=== PATIENT | male | born 1990 | race Caucasian/White ===

== ENCOUNTER 2021-10-19 17:48 | Emergency (ER) | payer OTHER ==
[2021-10-19] MEDS ORDERED: NA CHLORIDE 0.9% 1,000 ML ONE (20:06)
[2021-10-19] MEDS ORDERED: KETOROLAC 30 MG/ML INJ ONE (20:06)
[2021-10-19 20:13] LABS: Urine Blood Trace-intact (Negative); Urine Glucose Negative (Negative); Urine Protein Negative (Negative)
[2021-10-19 20:29] LABS: Absolute Lymphocytes (CBC) 1.6 K/uL (0.7-4.9); Basophils % 0.5 % (0-1.3); Hematocrit 47.3 % (39.6-49.0); Lymphocytes % 18.3 % (15.3-44.8); MPV 7.4 fL (7.6-11.3); RBC Red Blood Cell Count 5.16 M/uL (4.33-5.43)
[2021-10-19 20:45] LABS: Albumin 4.4 g/dL (3.4-5.0); Bilirubin Direct 0.2 mg/dL (0-0.2); Bilirubin Total 0.8 mg/dL (0.2-1.0); Potassium 3.7 mmol/L (3.5-5.1)
--- NOTE | 2021-10-19 21:58 | RAD REPORT ---
EXAM DESCRIPTION: CT - Abdomen Pelvis W Contrast - 10/19/2021 9:25 pm CLINICAL HISTORY: ABD PAIN COMPARISON: <Comparisons> TECHNIQUE: Biphasic, helical CT imaging of the abdomen and pelvis was performed following 100 ml non -ionic IV contrast. No oral contrast administered. All CT scans are performed using dose optimization technique as appropriate and may include automated exposure control or mA/KV adjustment according to patient size. FINDINGS: No suspicious findings in the lung bases. The liver, spleen, and pancreas show no suspicious findings. Gallbladder and biliary tree are also wi thout suspicious finding. Symmetric renal function is seen with no hydronephrosis or suspicious renal mass. No pyelonephritis o r acute parenchymal process. No bladder abnormalities. No adrenal abnormalities. Stomach is distended but not dilated by fluid. No gastric wall thickening or mass. No dilated large o r small bowel. No bowel wall thickening or mass. Appendix is normal. No free air, free fluid or infl ammatory stranding. No hernia, mass or bulky lymphadenopathy. No suspicious bony findings. IMPRESSION: Contrast enhanced CT abdomen and pelvis showing no significant or suspicious finding.
--- NOTE | 2021-10-19 22:05 | EDPHYS ---
Physician Documentation [facility] Name: Vincent Martin Age: 31 yrs Sex: Male : 1990 Arrival Date: 10/19/2021 Time: 17:48 Bed 5 Private MD: ED Physician Leonides Ivey HPI: 10/19 20:06 This 31 yrs old Male presents to ER via Ambulatory with complaints of R Side Pain. pm1 20:06 The patient complains of pain in the lateral right mid back area. The pain does not pm1 radiate. Onset: The symptoms/episode began/occurred 1 week(s) ago. Modifying factors: The symptoms are alleviated by nothing. the symptoms are aggravated by movement. Associated signs and symptoms: Pertinent negatives: diarrhea, dysuria, fever, nausea, vomiting. Severity of pain: in the emergency department the pain is actually worse. The patient has not experienced similar symptoms in the past. The patient has not recently seen a physician. Historical: - Allergies: 18:04 No Known Allergies; vg1 - Home Meds: 18:04 omeprazole Oral [Active]; vg1 - PMHx: 18:04 Acid Reflux; vg1 - PSHx: 18:04 None; vg1 - Immunization history:: Client reports receiving the 2nd dose of the Covid vaccine. - Social history:: Smoking status: Patient reports the use of cigarette tobacco products, cigars. ROS: 20:06 Constitutional: Negative for fever, chills, and weight loss, Cardiovascular: Negative pm1 for chest pain, palpitations, and edema, Respiratory: Negative for shortness of breath, cough, wheezing, and pleuritic chest pain. 20:06 : Negative for injury, bleeding, discharge, and swelling, MS/Extremity: Negative for injury and deformity, Skin: Negative for injury, rash, and discoloration, Neuro: Negative for headache, weakness, numbness, tingling, and seizure. 20:06 Abdomen/GI: Positive for abdominal pain, of the right upper quadrant, Negative for nausea, vomiting, and diarrhea, constipation. 20:06 Back: Positive for flank pain, on the right. 20:06 All other systems are negative. Exam: 20:06 Constitutional: This is a well developed, well nourished patient who is awake, alert, pm1 and in no acute distress. Head/Face: Normocephalic, atraumatic. 20:06 Skin: Warm, dry with normal turgor. Normal color with no rashes, no lesions, and no evidence of cellulitis. MS/ Extremity: Pulses equal, no cyanosis. Neurovascular intact. Full, normal range of motion. 20:06 Cardiovascular: Exam negative for acute changes, Rate: normal, Rhythm: regular, Pulses: no pulse deficits are appreciated. 20:06 Respiratory: Exam negative for acute changes, respiratory distress, shortness of breath, Breath sounds: are clear throughout. 20:06 Abdomen/GI: Exam negative for acute changes, Inspection: abdomen appears normal, Palpation: abdomen is soft and non-tender, in all quadrants. 20:06 Back: Exam negative for acute changes, pain, that is mild, of the lateral aspect of right mid back area. 20:06 Neuro: Exam negative for acute changes, Orientation: is normal, Mentation: is normal, Motor: is normal, moves all fours. Vital Signs: 18:02 BP 134 / 81; Pulse 85; Resp 16; Temp 98.3; Pulse Ox 98% ; Weight 74.84 kg; Height 5 ft. vg1 9 in. (175.26 cm); Pain 4/10; 20:00 BP 137 / 97; Pulse 96; Resp 14; Pulse Ox 100% on R/A; Pain 4/10; tw5 20:18 BP 125 / 80; Pulse 96; Resp 14; Pulse Ox 100% on R/A; Pain 5/10; tw5 21:29 BP 136 / 86; Pulse 18; Pulse Ox 100% on R/A; Pain 5/10; tw5 22:13 BP 129 / 74; Pulse 95; Resp 18; Pulse Ox 100% on R/A; tw5 18:02 Body Mass Index 24.37 (74.84 kg, 175.26 cm) vg1 MDM: 20:03 Patient medically screened. pm1 20:56 Data reviewed: vital signs. Data interpreted: Pulse oximetry: on room air is 100 %. pm1 Interpretation: normal. 22:04 Counseling: I had a detailed discussion with the patient and/or guardian regarding: the pm1 historical points, exam findings, and any diagnostic results supporting the discharge/admit diagnosis, lab results, radiology results, the need for outpatient follow up, to return to the emergency department if symptoms worsen or persist or if there are any questions or concerns that arise at home. 10/19 20:04 Order name: Basic Metabolic Panel; Complete Time: 20:45 pm1 10/19 20:04 Order name: CBC with Diff; Complete Time: 20:35 pm1 10/19 20:04 Order name: Hepatic Function; Complete Time: 20:45 pm1 12 20:04 Order name: Lipase; Complete Time: 20:45 pm1 10/19 20:04 Order name: CT Abd/Pelvis - IV Contrast Only; Complete Time: 22:03 pm1 12 20:13 Order name: Urine Dipstick-Ancillary; Complete Time: 20:35 EDMS 10/19 20:04 Order name: IV Saline Lock; Complete Time: 20:14 pm1 10/19 20:04 Order name: Labs collected and sent; Complete Time: 20:14 pm1 Administered Medications: 20:14 Drug: Ketorolac 30 mg Route: IVP; Site: right antecubital; tw5 21:29 Follow up: Response: No adverse reaction; Pain is unchanged, physician notified tw 21:44 Follow up: Response: No adverse reaction as6 20:14 Drug: NS 0.9% 1000 ml Route: IV; Rate: 1000 ml; Site: right antecubital; tw 21:29 Follow up: Response: No adverse reaction; IV Status: Completed infusion tw 21:44 Follow up: Response: No adverse reaction; IV Status: Completed infusion; IV Intake: as6 1000ml Disposition: 10/20 04:36 Co-signature as Attending Physician, Leonides Ivey MD. [email or web address] Disposition Summary: 10/19/21 22:04 Discharge Ordered Location: Home pm1 Problem: new pm1 Symptoms: have improved pm1 Condition: Stable pm1 Diagnosis - Abdominal pain, unspecified pm1 Followup: pm1 - With: Emergency Department - When: As needed - Reason: Worsening of condition Followup: pm1 - With: Private Physician - When: 2 - 3 days - Reason: Recheck today's complaints, Continuance of care, Re-evaluation by your physician Discharge Instructions: - Discharge Summary Sheet pm1 - Abdominal Pain, Adult pm1 Forms: - Medication Reconciliation Form pm1 - Thank You Letter pm1 - Antibiotic Education pm1 - Prescription Opioid Use pm1 Prescriptions: - Cyclobenzaprine 10 mg Oral Tablet - take 1 tablet by ORAL route every 8 hours As needed; 30 tablet; Refills: 0, pm1 Product Selection Permitted Signatures: Dispatcher [employer] Celio Haas NP CHALK MOLDING MACHINE OPERATOR pm1 Jane Puga RN RN vg1 Leonides Ivey MD MD mh7 Mya Cohn 5 Jony Celestin RN as6 Corrections: (The following items were deleted from the chart) 10/19 18:05 18:04 Social history: Smoking status: Patient denies any tobacco usage or history of. vg1 vg1
--- NOTE | 2021-10-19 22:05 | ER ---
Nurse's Notes [facility] Name: Vincent Martin Age: 31 yrs Sex: Male : 1990 Arrival Date: 10/19/2021 Time: 17:48 Bed 5 Private MD: Diagnosis: Abdominal pain, unspecified Presentation: 10/19 18:02 Chief complaint: Patient states: RUQ pain x1 week, states 'feel like pressure', Denies vg1 NVD, back pain or burning upon urination. Coronavirus screen: Vaccine status: Patient reports receiving the 2nd dose of the covid vaccine. Client denies travel out of the [place] in the last 14 days. Ebola Screen: Patient negative for fever greater than or equal to 101.5 degrees Fahrenheit, and additional compatible Ebola Virus Disease symptoms. Initial Sepsis Screen: Does the patient meet any 2 criteria? No. Patient's initial sepsis screen is negative. Does the patient have a suspected source of infection? No. Patient's initial sepsis screen is negative. Risk Assessment: Do you want to hurt yourself or someone else? Patient reports no desire to harm self or others. Onset of symptoms was October 12, 2021. 18:02 Method Of Arrival: Ambulatory vg1 18:02 Acuity: MINERVA 3 vg1 Triage Assessment: 18:04 General: Appears in no apparent distress. comfortable, Behavior is calm, cooperative. vg1 Pain: Complains of pain in right upper quadrant Pain currently is 4 out of 10 on a pain scale. Quality of pain is described as pressure, Pain began x 1 week. 18:04 GI: Patient currently denies diarrhea, nausea, vomiting. vg1 Historical: - Allergies: 18:04 No Known Allergies; vg1 - Home Meds: 18:04 omeprazole Oral [Active]; vg1 - PMHx: 18:04 Acid Reflux; vg1 - PSHx: 18:04 None; vg1 - Immunization history:: Client reports receiving the 2nd dose of the Covid vaccine. - Social history:: Smoking status: Patient reports the use of cigarette tobacco products, cigars. Screenin:00 Abuse screen: Denies threats or abuse. Denies injuries from another. Nutritional tw5 screening: No deficits noted. Tuberculosis screening: No symptoms or risk factors identified. Fall Risk None identified. Assessment: 20:00 General: Reports " I have been having this pain for about a week, maybe even before, tw5 but I just thought it was cramps." Patient states that the pain has been getting worse. 20:00 Pain: Complains of pain in right upper quadrant Pain currently is 5 out of 10 on a pain tw5 scale. GI: Abdomen is non-distended, Abd is soft X 4 quads. 21:29 Reassessment: Patient appears in no apparent distress at this time. No changes from tw5 previously documented assessment. Patient and/or family updated on plan of care and expected duration. Pain level reassessed. General: Appears in no apparent distress. Behavior is calm, cooperative. 22:13 Reassessment: Patient and/or family updated on plan of care and expected duration. Pain tw5 level reassessed. Vital Signs: 18:02 BP 134 / 81; Pulse 85; Resp 16; Temp 98.3; Pulse Ox 98% ; Weight 74.84 kg; Height 5 ft. vg1 9 in. (175.26 cm); Pain 4/10; 20:00 BP 137 / 97; Pulse 96; Resp 14; Pulse Ox 100% on R/A; Pain 4/10; tw5 20:18 BP 125 / 80; Pulse 96; Resp 14; Pulse Ox 100% on R/A; Pain 5/10; tw5 21:29 BP 136 / 86; Pulse 18; Pulse Ox 100% on R/A; Pain 5/10; tw5 22:13 BP 129 / 74; Pulse 95; Resp 18; Pulse Ox 100% on R/A; tw5 18:02 Body Mass Index 24.37 (74.84 kg, 175.26 cm) vg1 ED Course: 17:48 Patient arrived in ED. ds1 18:03 Triage completed. vg1 18:04 Arm band placed on. vg1 19:48 Celio Garcia NP is PHCP. pm1 19:48 Leonides Ivye MD is Attending Physician. pm1 19:49 Jony Celestin, ARACELIS is Primary Nurse. as6 19:50 Primary Nurse role handed off by Jony Celestin, ARACELIS tw5 19:50 Mya Cohn is Primary Nurse. tw5 20:00 Patient has correct armband on for positive identification. Placed in gown. Bed in low tw5 position. Call light in reach. Side rails up X 1. Pulse ox on. NIBP on. Door closed. Noise minimized. Moved to private room. Warm blanket given. Verbal reassurance given. 20:14 Basic Metabolic Panel Sent. tw5 20:14 CBC with Diff Sent. tw5 20:14 Hepatic Function Sent. tw 20:14 Lipase Sent. tw5 20:18 Initial lab(s) drawn, by me, sent to lab. Inserted saline lock: 20 gauge in right tw5 antecubital area, using aseptic technique. Blood collected. 21:26 CT Abd/Pelvis - IV Contrast Only In Process Unspecified. EDMS 22:13 No provider procedures requiring assistance completed. IV discontinued, intact, tw5 bleeding controlled, No redness/swelling at site. Pressure dressing applied. Administered Medications: 20:14 Drug: Ketorolac 30 mg Route: IVP; Site: right antecubital; tw5 21:29 Follow up: Response: No adverse reaction; Pain is unchanged, physician notified tw5 21:44 Follow up: Response: No adverse reaction as6 20:14 Drug: NS 0.9% 1000 ml Route: IV; Rate: 1000 ml; Site: right antecubital; tw5 21:29 Follow up: Response: No adverse reaction; IV Status: Completed infusion tw5 21:44 Follow up: Response: No adverse reaction; IV Status: Completed infusion; IV Intake: as6 1000ml Intake: 21:44 IV: 1000ml; Total: 1000ml. as6 Outcome: 22:04 Discharge ordered by . pm1 22:13 Discharged to home ambulatory. tw5 22:13 Condition: good 22:13 Discharge instructions given to patient, Instructed on discharge instructions, follow up and referral plans. Demonstrated understanding of instructions, follow-up care. 22:14 Patient left the ED. tw5 Signatures: Dispatcher [employer] [facility] Faith Washburn ds1 Celio Garcia, MARK DIRECTOR TRANSLATION pm1 Jane Puga, RN RN ariel1 Mya Cohn tw5 Jony Celestin RN RN as6 Corrections: (The following items were deleted from the chart) 18:05 18:04 Social history: Smoking status: Patient denies any tobacco usage or history of. [email or web address] vg1
[2021-10-19 22:46] VITALS: TEMP 98.3
[2021-10-19 22:47] VITALS: O2SAT 100
[2021-10-19 22:51] VITALS: BP 129/74
== END 2021-10-19 22:14 | disposition home or self-care (01) ==
LOC: ER 17:48
DX: R10.9 Unspecified abdominal pain (principal)
CPT/HCPCS: 96361; 85025; 80048; 36415; 80076; 81003; 83690; 74177; 96374; 99284; Q9967; J7030

== ENCOUNTER 2022-01-23 17:34 | Emergency (ER) | payer OTHER ==
--- NOTE | 2022-01-23 20:22 | RAD REPORT ---
EXAM DESCRIPTION: RAD - Ankle Right 3 View - 01/23/2022 8:10 pm CLINICAL HISTORY: Right ankle pain status post fall FINDINGS: No fracture or dislocation is seen.
--- NOTE | 2022-01-23 20:22 | RAD REPORT ---
EXAM DESCRIPTION: RAD - Foot Right 3 View - 01/23/2022 8:10 pm CLINICAL HISTORY: Right foot pain status post injury FINDINGS: No fracture or dislocation is seen
--- NOTE | 2022-01-23 20:29 | ER ---
Nurse's Notes [facility] Name: Vincent Martin Age: 32 yrs Sex: Male : 1990 Arrival Date: 01/23/2022 Time: 17:34 Bed 28 Private MD: Diagnosis: Sprain of unspecified ligament of right ankle, initial encounter Presentation: 01/23 18:00 Chief complaint: Patient states: he injured his right ankle when he jumped off the ap3 tailgate of a standard sized truck. Patient complains of pain 7/10 currently in his right ankle. Coronavirus screen: At this time, the client does not indicate any symptoms associated with coronavirus-19. Ebola Screen: No symptoms or risks identified at this time. Initial Sepsis Screen: Does the patient meet any 2 criteria? No. Patient's initial sepsis screen is negative. Does the patient have a suspected source of infection? No. Patient's initial sepsis screen is negative. Risk Assessment: Do you want to hurt yourself or someone else? Patient reports no desire to harm self or others. Onset of symptoms was January 23, 2022. 18:00 Method Of Arrival: Wheelchair ap3 18:00 Acuity: MINERVA 4 ap3 Triage Assessment: 18:02 General: Appears in no apparent distress. Behavior is calm, cooperative, appropriate ap3 for age. Pain: Complains of pain in right ankle Pain currently is 7 out of 10 on a pain scale. Quality of pain is described as aching, sharp, throbbing, stinging, Pain began suddenly, Is continuous, Aggravated by weight bearing. Neuro: Level of Consciousness is awake, alert, obeys commands, Oriented to person, place, time, situation, Appropriate for age Gait is unsteady, Speech is normal. Cardiovascular: Patient's skin is warm and dry. Respiratory: Airway is patent Respiratory effort is even, unlabored. Musculoskeletal: Swelling present in right foot. Historical: - Allergies: 18:01 No Known Allergies; ap3 - PMHx: 18:01 acid reflux; ap3 - Immunization history:: Client reports receiving the 2nd dose of the Covid vaccine, Flu vaccine is not up to date. - Social history:: Smoking status: Patient denies any tobacco usage or history of. Patient uses alcohol, but reports only rare drinking. - Family history:: not pertinent. - Hospitalizations: : No recent hospitalization is reported. Screenin:05 Abuse screen: Denies threats or abuse. Nutritional screening: No deficits noted. ap3 Tuberculosis screening: No symptoms or risk factors identified. 20:16 Fall Risk None identified. sv1 Assessment: 20:17 Reassessment: Radiology completed. sv1 20:48 Reassessment: radiology completed. sandra wrap applied to the right foot and ankle. sv1 Cleared for discharge to home by the provider. . Vital Signs: 18:00 BP 118 / 84; Pulse 82; Resp 17; Temp 98.8; Pulse Ox 100% ; Weight 78.02 kg; Height 5 ap3 ft. 8 in. (172.72 cm); Pain 7/10; 20:14 BP 128 / 84 LA Sitting (auto/reg); Pulse 69 MON; Resp 16; Temp 98.2(O); Pulse Ox 98% on sv1 R/A; Weight 80.29 kg; Height 5 ft. 9 in. (175.26 cm); 20:45 BP 123 / 80 LA Sitting (auto/); Pulse 74 MON; Resp 17 S; Pulse Ox 97% on R/A; sv1 20:14 Body Mass Index 26.14 (80.29 kg, 175.26 cm) sv1 ED Course: 17:34 Patient arrived in ED. ds1 18:01 Triage completed. ap3 18:05 Arm band placed on right wrist. ap3 19:40 Prem Vazquez MD is Attending Physician. rn 20:10 XRAY Ankle RIGHT 3 view In Process Unspecified. EDMS 20:10 XRAY Foot RIGHT 3 View In Process Unspecified. EDMS 20:14 Babak Galarza, ARACELIS is Primary Nurse. sv1 20:16 Patient has correct armband on for positive identification. Bed in low position. Side sv1 rails up X 1. Adult w/ patient. 20:28 Denny Cervantes MD is Referral Physician. rn 20:45 of the right foot/toe(s) right lateral malleolus and right medial malleolus. sv1 20:50 Patient did not have IV access during this emergency room visit. sv1 Administered Medications: No medications were administered Outcome: 20:28 Discharge ordered by . rn 20:45 Discharged to home ambulatory, with family. sv1 20:45 Condition: good 20:45 Discharge instructions given to patient, family. 20:50 Patient left the ED. sv1 Signatures: Dispatcher [employer] EDMS Faith Washburn ds1 Prem Vazquez MD MD rn Prokisch, Amanda, RN RN fly3 Babak Galarza RN RN sv1
--- NOTE | 2022-01-23 20:29 | EDPHYS ---
Physician Documentation [facility] Name: Vincent Martin Age: 32 yrs Sex: Male : 1990 Arrival Date: 01/23/2022 Time: 17:34 Bed 28 Private MD: ED Physician Prem Vazquez HPI: 01/23 20:24 This 32 yrs old Male presents to ER via Wheelchair with complaints of Ankle Injury. rn 20:24 The patient presents with an injury, pain. The complaints affect the right ankle. rn 20:24 Onset: The symptoms/episode began/occurred just prior to arrival. Context: The problem rn was sustained outdoors, resulted from a mis-step by the patient, The mechanism of injury involved inversion of the affected ankle. The patient can partially bear weight on the affected extremity. the patient is able to ambulate, must have assistance. Associated signs and symptoms: Pertinent positives: swelling, Pertinent negatives: weakness. Modifying factors: The symptoms are alleviated by elevation of extremity, sitting, the symptoms are aggravated by weight bearing, movement. Severity of symptoms: At their worst the symptoms were moderate, in the emergency department the symptoms are unchanged. The patient has not experienced similar symptoms in the past. REports jumped off of truck tailgate today, thinks ankle rolled inward, reports hurts to move ankle and bear weight. No other injury. . Historical: - Allergies: 18:01 No Known Allergies; ap3 - PMHx: 18:01 acid reflux; ap3 - Immunization history:: Client reports receiving the 2nd dose of the Covid vaccine, Flu vaccine is not up to date. - Social history:: Smoking status: Patient denies any tobacco usage or history of. Patient uses alcohol, but reports only rare drinking. - Family history:: not pertinent. - Hospitalizations: : No recent hospitalization is reported. ROS: 20:24 Constitutional: Negative for fever, chills, and weight loss, MS/Extremity: + injury and rn pain to right ankle/foot Skin: Negative for injury, rash, and discoloration, Neuro: Negative for weakness, numbness, tingling Exam: 20:24 Constitutional: This is a well developed, well nourished patient who is awake, alert, rn and in no acute distress. MS/ Extremity: Pulses equal, no cyanosis. Neurovascular intact. No tenderness at either malleolus of right ankle, + mild pain at right midfoot, no tenderness along toes or heel. No ecchymosis. Vital Signs: 18:00 BP 118 / 84; Pulse 82; Resp 17; Temp 98.8; Pulse Ox 100% ; Weight 78.02 kg; Height 5 ap3 ft. 8 in. (172.72 cm); Pain 7/10; 20:14 BP 128 / 84 LA Sitting (auto/reg); Pulse 69 MON; Resp 16; Temp 98.2(O); Pulse Ox 98% on sv1 R/A; Weight 80.29 kg; Height 5 ft. 9 in. (175.26 cm); 20:45 BP 123 / 80 LA Sitting (auto/); Pulse 74 MON; Resp 17 S; Pulse Ox 97% on R/A; sv1 20:14 Body Mass Index 26.14 (80.29 kg, 175.26 cm) sv1 MDM: 19:40 Patient medically screened. rn 20:27 Differential diagnosis: fracture, sprain. Data reviewed: vital signs, nurses notes, rn radiologic studies, plain films, and as a result, I will discharge patient. Counseling: I had a detailed discussion with the patient and/or guardian regarding: the historical points, exam findings, and any diagnostic results supporting the discharge/admit diagnosis, radiology results, the need for outpatient follow up, to return to the emergency department if symptoms worsen or persist or if there are any questions or concerns that arise at home. Special discussion: I discussed with the patient/guardian in detail that at this point there is no indication for admission to the hospital. It is understood, however, that if the symptoms persist or worsen the patient needs to return immediately for re-evaluation. 20:45 ED course: Pt declines walking boot, states has one at home that he would rather use.. rn 01/23 19:38 Order name: XRAY Ankle RIGHT 3 view; Complete Time: 20:24 rn 01/23 19:52 Order name: XRAY Foot RIGHT 3 View; Complete Time: 20:24 rn 01/23 20:35 Order name: Olman wrap-joint; Complete Time: 20:35 sv1 Administered Medications: No medications were administered Disposition Summary: 01/23/22 20:28 Discharge Ordered Location: Home rn Problem: new rn Symptoms: have improved rn Condition: Stable rn Diagnosis - Sprain of unspecified ligament of right ankle, initial encounter rn Followup: rn - With: Denny Cervantes MD - When: As needed - Reason: Recheck today's complaints, Re-evaluation by your physician Discharge Instructions: - Discharge Summary Sheet rn - Ankle Sprain rn Forms: - Medication Reconciliation Form rn - Thank You Letter rn - Antibiotic metal pattern maker - Prescription Opioid Use rn Signatures: Dispatcher [employer] EDMS Prem Vazquez MD MD rn Prokisch, Amanda, RN RN ap3 Babak Galarza RN RN sv1 Corrections: (The following items were deleted from the chart) 20:28 20:24 Constitutional: This is a well developed, well nourished patient who is awake, rn alert, and in no acute distress. rn 20:35 20:24 Walking boot ordered. rn sv1
[2022-01-23 21:26] VITALS: TEMP 98.2
[2022-01-23 21:28] VITALS: BP 123/80; O2SAT 97
== END 2022-01-23 20:50 | disposition home or self-care (01) ==
LOC: ER 17:34
DX: S93.401A Sprain of unspecified ligament of right ankle, initial encounter (principal)
CPT/HCPCS: 99284

== ENCOUNTER 2025-03-10 16:39 | Emergency (ER) | payer BC ==
--- OUTSIDE RECORDS SUMMARY | 2025-03-10 16:44 | XMS REPORT | Continuity of Care Document ---
Author Name Unknown Address [address] [facility]. [address] [place] [address] [facility] Address [address] [facility]. [address] [place] [address] Care Team Providers Care Digital Marketing Lead Name Role Phone Nick Baker Attending Clinician Unavailable Payers Payer Name Policy Type Policy Number Effective Date Expirati on Date Source [facility] 6 [id number] 2024 00:00:00 [facility] Problems Condition Name Condition Details Condition Category Status Onset Date Resolution Date Last Treatment Date Treating Clinician Comments Source [id number] Tobacco use disorder Problem Active [facility] [id number] Chondromal acia of right patella Problem Active [facility] [id number] Pain, joint, knee, right Problem Active [facility] [id number] Hyperlipid emia, unspecifie d hyperlipid emia type Problem Active [facility] [id number] GERD without esophagiti s Problem Active [facility] [id number] Esophageal stricture Problem Active [facility] [id number] Non-season al allergic rhinitis, unspecifie d trigger Problem Active [facility] [id number] Sprain of anterior talofibula r ligament of right ankle, initial encounter Problem Active [facility] [id number] Foot pain, right Problem Active [facility] Constipati on Constipati on Problem Active [facility] [id number] Gastritis, presence of bleeding unspecifie d, unspecifie d chronicity , unspecifie d gastritis type Problem Active [facility] Social History Social Habit Start Date Stop Date Quantity Comments Source Sex Assigned At [facility] History of Tobacco Use Current Smoker [facility] Smoking Status Start Date Stop Date Source Current Smoker 2024-06-26 00:00:00 [facility] Medications Ordered Medication Name Filled Medication Name Start Date Stop Date Current Medication? Ordering Clinician Indication Dosage Frequency Signature (SIG) Comments Components Source Kenalog (Triamcinol one) Kenalog (Triamcinol one) 02-09 00:00: 00 No 40mg [facility] Pantoprazol e Sodium 40 MG Pantoprazol e Sodium 40 MG No 1{table t} QD Pantoprazo le Sodium 40 MG Omeprazole 20 MG Omeprazole 20 MG No 1{capsu le} QD Omeprazole 20 MG Fexofenadin e HCl 180 MG Fexofenadin e HCl 180 MG No 1{table t_as_ne eded} QD Fexofenadi ne HCl 180 MG Immunizations Ordered Immunization Name Filled Immunization Name Date Status Comments Source Adacel (Tdap) Adacel (Tdap) 2019-05-30 16:24:00 Completed [facility] Adacel (Tdap) Adacel (Tdap) [facility] Adacel (Tdap) Unknown Completed Co [facility] Vital Signs Vital Name Observation Time Observation Value Comments S ource temperature 2024-06-26 10:10:00 97 [degF] Comm on [facility] bmi 2024-06-26 10:10:00 29.92 kg/m2 Comm on [facility] oximetry 2024-06-26 10:10:00 97 % Commo n [facility] blood pressure systolic 2024-06-26 10:10:00 128 mm[Hg] Common [facility] blood pressure diastolic 2024-06-26 10:10:00 76 mm[Hg] [facility] height 2024-06-26 10:10:00 69 [in_i] Commo n [facility] weight 2024-06-26 10:10:00 202.6 [lb_av] Co [facility] height 2023-04-28 10:50:00 69 [in_i] Commo n [facility] weight 2023-04-28 10:50:00 196.0 [lb_av] Co [facility] temperature 2023-04-28 10:50:00 96.9 [degF] Com [facility] bmi 2023-04-28 10:50:00 28.94 kg/m2 Comm on [facility] oximetry 2023-04-28 10:50:00 97 % Commo n [facility] respiratory rate 2023-04-28 10:50:00 18 /min [facility] blood pressure systolic 2023-04-28 10:50:00 116 mm[Hg] [facility] blood pressure diastolic 2023-04-28 10:50:00 63 mm[Hg] [facility] height 2022-05-27 13:30:00 69 [in_i] Commo n [facility] weight 2022-05-27 13:30:00 178.2 [lb_av] Co [facility] temperature 2022-05-27 13:30:00 98.3 [degF] Com [facility] bmi 2022-05-27 13:30:00 26.31 kg/m2 Comm on [facility] oximetry 2022-05-27 13:30:00 97 % Commo n [facility] respiratory rate 2022-05-27 13:30:00 17 /min [facility] blood pressure systolic 2022-05-27 13:30:00 121 mm[Hg] Common [facility] blood pressure diastolic 2022-05-27 13:30:00 66 mm[Hg] [facility] Encounters Start Date/Time End Date/Time Encounter Type Admission Type Attending Clinicians Care Facility Care Department Encounter ID Source 2024-12-13 12:47:00 [facility] [id number] [facility] 2024-06-08 16:25:00 Outpatient Baker, [facility] [id number] [facility] 2023-06-15 14:34:00 [facility] [id number] [facility] 2023-04-26 08:32:00 [facility] [id number] [facility] 2022-05-27 13:43:01 [facility] [id number] [facility] 2022-05-26 13:45:02 [facility] [id number] [facility] 2022-03-24 15:18:03 [facility] [id number] [facility] 2022-02-09 15:16:02 Outpatient Baker, [facility] [id number] [facility] 2024-12-13 00:00:00 2024-12-13 00:00:00 (TEL) [facility] [id number] [facility] 2024-06-26 00:00:00 2024-06-26 00:00:00 (WELLNESS) Wellness Visit [facility] [id number] [facility] 2024-06-16 00:00:00 2024-06-16 00:00:00 (TEL) [facility] [id number] [facility] 2024-06-06 00:00:00 2024-06-06 00:00[facility] [id number] 2023-04-28 00:00:00 2023-04-28 00:00:00 (WELLNESS) Wellness Visit [facility] [id number] [facility] 2022-05-27 00:00:00 2022-05-27 00:00:00 OFFICE VISIT EST PT LEVEL 3 [facility] [id number] [facility] Results Test Description Test Time Test Comments Results Result Co mments Source CBC W/AUTO [id number] 00:00:00* Test Item Value Reference Range Interpretation Comme nts NUCLEATED RBCS (test code = 95408-4) 0.0 /100 WBC'S See_Comment [Automated messa ge] The system which generated this result transmitted reference range: 0.0 /100 WBC'S. The reference range was not used to interpret this result as normal/abnormal. ABSOLUTE EOSINOPHILS (test code = 30556-0) 0.07 K/UL See_Comment [Automated messa ge] The system which generated this result transmitted reference range: 0.00-0.50 K/UL. The reference range was not used to interpret this result as normal/abnormal. ABSOLUTE LYMPHOCYTES (test code = 30487-9) 1.31 K/UL See_Comment [Automated messa ge] The system which generated this result transmitted reference range: 1.00-4.00 K/UL. The reference range was not used to interpret this result as normal/abnormal. ABSOLUTE MONOCYTES (test code = 25176-2) 0.49 K/UL See_Comment [Automated messa ge] The system which generated this result transmitted reference range: 0.20-1.00 K/UL. The reference range was not used to interpret this result as normal/abnormal. ABSOLUTE NEUTROPHILS (test code = 42662-0) 4.09 K/UL See_Comment [Automated messa ge] The system which generated this result transmitted reference range: 1.50-7.50 K/UL. The reference range was not used to interpret this result as normal/abnormal. BASOPHILS (test code = 74560-4) 0.7 % EOSINOPHILS (test code = 49613-3) 1.2 % HEMATOCRIT (test code = 60770-5) 45.6 % See_Comment [Automated messa ge] The system which generated this result transmitted reference range: 40.0-51.0 %. The reference range was not used to interpret this result as normal/abnormal. HEMOGLOBIN (test code = 718-7) 16.3 G/DL See_Comment [Automated messa ge] The system which generated this result transmitted reference range: 13.5-17.0 G/DL. The reference range was not used to interpret this result as normal/abnormal. LYMPHOCYTES (test code = 88790-0) 21.7 % MCH (test code = 29423-6) 33.1 PG See_Comment H [Automated messa ge] The system which generated this result transmitted reference range: 25.0-33.0 PG. The reference range was not used to interpret this result as normal/abnormal. MCHC (test code = 70789-9) 35.7 G/DL See_Comment [Automated messa ge] The system which generated this result transmitted reference range: 31.0-36.0 G/DL. The reference range was not used to interpret this result as normal/abnormal. MCV (test code = 06098-0) 92.5 fL See_Comment [Automated messa ge] The system which generated this result transmitted reference range: 80.0-99.0 fL. The reference range was not used to interpret this result as normal/abnormal. MONOCYTES (test code = 56299-0) 8.1 % NEUTROPHILS (test code = 93485-4) 67.8 % PLATELET COUNT (test code = 78713-9) 290 K/UL See_Comment [Automated messa ge] The system which generated this result transmitted reference range: 130-400 K/UL. The reference range was not used to interpret this result as normal/abnormal. RBC (test code = 09466-2) 4.93 M/UL See_Comment [Automated messa ge] The system which generated this result transmitted reference range: 4.50-6.10 M/UL. The reference range was not used to interpret this result as normal/abnormal. RDW (test code = 10147-0) 12.2 % See_Comment [Automated messa ge] The system which generated this result transmitted reference range: 11.5-15.0 %. The reference range was not used to interpret this result as normal/abnormal. WBC (test code = 83017-9) 6.0 K/UL See_Comment [Automated [employer] ge] The system which generated this result transmitted reference range: 3.5-11.0 K/UL. The reference range was not used to interpret this result as normal/abnormal.
--- NOTE | 2025-03-10 17:50 | RAD REPORT ---
EXAM: Chest Pa And Lat (2 Views) HISTORY: 35 years Male CHEST PAIN COMPARISON: 03/25/2022 FINDINGS: LUNGS/PLEURA: The lungs are clear. No pleural effusions or pneumothorax. No pulmonary edema. CARDIAC/MEDIASTINUM: The cardiac silhouette is within normal limits. UPPER ABDOMEN: No significant abnormality. BONES: No acute abnormality. LINES/TUBES/OTHER: N/A IMPRESSION: No evidence of acute cardiopulmonary disease.
[2025-03-10 18:19] LABS: Absolute Eosinophils 0.1 K/uL (0-0.5); Absolute Lymphocytes (CBC) 1.3 K/uL (0.7-4.9); Absolute Monocytes 0.5 K/uL (0.1-1.3); Absolute Neutrophil 5.7 K/uL (1.8-8.0); Basophils % 0.4 % (0-1.3); Eosinophils % 0.8 % (0-4.4); Lymphocytes % 17.7 % (15.3-44.8); MCH 31.3 pg (27.0-35.0); MCHC 34.8 g/dL (32.0-36.0); MCV 89.9 fL (80-100); MPV 7.4 fL (7.6-11.3); Monocytes % 6.1 % (3.3-12.3); Nucleated Red Blood Cells % 0.1 % (0-0); Platelets 303 thou/uL (152-406); RBC Red Blood Cell Count 5.12 M/uL (4.33-5.43); Red Cell Distribution Width 13.2 % (12.1-15.2)
[2025-03-10 18:35] LABS: Anion Gap 6.9 mEq/L (5.0-15.0); BUN Blood Urea Nitrogen 11 mg/dL (7-18); Bicarbonate 29 mEq/L (21-32); Glomerular Filtration Rate 90 ml/min (=/>90); Glucose Level 119 mg/dL (74-106); Lipase 34 U/L (13-75); Potassium 3.9 mEq/L (3.5-5.1); Sodium Level 138 mEq/L (136-145); Troponin High Sensitivity < 3.0 pg/mL (<58.9)
--- NOTE | 2025-03-10 20:00 | EDPHYS ---
Physician Documentation [facility] Name: Vincent Martin Age: 35 yrs Sex: Male : 1990 Arrival Date: 03/10/2025 Time: 16:39 Bed 16 Private MD: ED Physician Prem Vazquez HPI: 03/10 22:26 This 35 yrs old Male presents to ER via Ambulatory with complaints of Chest dr5 Pain. 22:26 Patient is a 35-year-old male with history of acid reflux coming in with left-sided dr5 chest pain that started at 1300 o'clock today. Patient reports that this has happened before with his GERD attacks. Patient's history on omeprazole but has not been taking it. Patient denies fever, nausea, vomiting, diarrhea.. Historical: - Allergies: 18:16 No Known Allergies; ph - PMHx: 16:58 acid reflux; iw - Immunization history:: Adult Immunizations unknown. - Infectious Disease History:: Denies. - Social history:: Smoking status: unknown. ROS: 22:26 Constitutional: as per hpi dr5 Exam: 22:26 Constitutional: This is a well developed, well nourished patient who is awake, alert, dr5 and in no acute distress. Head/Face: Normocephalic, atraumatic. Eyes: Pupils equal round and reactive to light, extra-ocular motions intact. Lids and lashes normal. Conjunctiva and sclera are non-icteric and not injected. Cornea within normal limits. Periorbital areas with no swelling, redness, or edema. ENT: Nares patent. No nasal discharge, no septal abnormalities noted. Tympanic membranes are normal and external auditory canals are clear. Oropharynx with no redness, swelling, or masses, exudates, or evidence of obstruction, uvula midline. Mucous membranes moist. Neck: Trachea midline, no thyromegaly or masses palpated, and no cervical lymphadenopathy. Supple, full range of motion without nuchal rigidity, or vertebral point tenderness. No Meningismus. Chest/axilla: Normal chest wall appearance and motion. Nontender with no deformity. No lesions are appreciated. Cardiovascular: Regular rate and rhythm with a normal S1 and S2. Normal PMI, no JVD. No pulse deficits. Respiratory: Lungs have equal breath sounds bilaterally, clear to auscultation. No rales, rhonchi or wheezes noted. No increased work of breathing, no retractions or nasal flaring. Back: No spinal tenderness. No costovertebral tenderness. Full range of motion. Skin: Warm, dry with normal turgor. Normal color with no rashes, no lesions, and no evidence of cellulitis. MS/ Extremity: Pulses equal, no cyanosis. Neurovascular intact. Full, normal range of motion. Neuro: Awake and alert, GCS 15, oriented to person, place, time, and situation. Cranial nerves II-XII grossly intact. Motor strength 5/5 in all extremities. Sensory grossly intact. Cerebellar exam normal. Normal gait. Vital Signs: 16:57 BP 150 / 96; Pulse 78; Resp 16; Temp 98.5; Pulse Ox 98% on R/A; iw 18:00 BP 138 / 89; Pulse 72; Resp 18; Pulse Ox 99% on R/A; ph 20:19 BP 122 / 82; Pulse 64; Resp 18; Pulse Ox 100% ; cp4 MDM: 17:03 Medical Screening Exam initiated dr5 :26 Differential diagnosis: viral Infection, bacterial infection, URI. Data reviewed: vital dr5 signs, nurses notes. I considered the following discharge prescriptions or medication management in the emergency department Medications were administered in the Emergency Department. See MAR. Care significantly affected by the following chronic conditions: GERD. Care significantly affected by the following Social Determinants of Health: Poor access to healthcare and/or lack of insurance, Poor access to transportation, Problems related to employment. Counseling: I had a detailed discussion with the patient and/or guardian regarding the historical points, exam findings, and any diagnostic results supporting the discharge/admit diagnosis, the presence of at least one elevated blood pressure reading (>120/80) during this emergency department visit, lab results, radiology results, the need for outpatient follow up, for definitive care, a family practitioner, to return to the emergency department if symptoms worsen or persist or if there are any questions or concerns that arise at home. ED course: Offered patient medication for pain twice and patient refused. Labs are unremarkable and patient reports that he is able to deal with the chest tightness. Offered patient to start Protonix daily but patient states he wants to see Dr. Kirkland before starting anything. All questions answered. Strict ER precautions provided and will return if worsening conditions.. 03/10 17:03 Order name: Basic Metabolic Panel; Complete Time: 18:43 [facility] 03/10 17:03 Order name: CBC with Diff; Complete Time: 18:26 [facility] 03/10 17:03 Order name: Troponin HS; Complete Time: 18:43 [facility] 03/10 17:03 Order name: Lipase; Complete Time: 18:43 [facility] 03/10 17:03 Order name: Chest Pa And Lat (2 Views) XRAY; Complete Time: 18:11 [facility] 03/10 17:03 Order name: EKG; Complete Time: 17:03 [facility] 03/10 17:03 Order name: Cardiac monitoring; Complete Time: 18:07 [facility] 03/10 17:03 Order name: EKG - Nurse/Tech; Complete Time: 17:06 [facility] 03/10 17:03 Order name: IV Saline Lock; Complete Time: 18:07 [facility] 03/10 17:03 Order name: Labs collected and sent; Complete Time: 18:07 [facility] 03/10 17:03 Order name: O2 Per Protocol; Complete Time: 18:07 [facility] 03/10 17:03 Order name: O2 Sat Monitoring; Complete Time: 18:07 dr5 EC:04 Rate is 59 beats/min. Rhythm is regular. QRS [place] is Normal. MT interval is normal at dr5 124 msec. QRS interval is normal at 90 msec. QT interval is normal at 368 msec. Administered Medications: 18:59 Not Given (Patient Refused): [id number] mg PO once ph 18:59 Not Given (Patient Refused): [id number] mg PO once ph Disposition Summary: 03/10/25 19:59 Discharge Ordered Notes: Location: Home dr5 Condition: Stable dr5 Diagnosis - Gastro-esophageal reflux disease without esophagitis dr5 Followup: dr5 - With: Emergency Department - When: As needed - Reason: Worsening of condition Followup: dr5 - With: Private Physician - When: 1 - 2 days - Reason: Recheck today's complaints, Continuance of care, Re-evaluation by your physician Discharge Instructions: - Discharge Summary Sheet dr5 - Gastroesophageal Reflux Disease, Adult dr5 Forms: - Medication Reconciliation Form dr5 - Patient Portal Instructions dr5 - Leadership Thank You Letter dr5 Prescriptions: - Protonix 40 mg Oral Tablet - take 1 tablet ORAL route once daily; 30 tablet; Refills: 0, Product Selection dr5 Permitted Addendum: 03/12/2025 09:05 Co-signature as Attending Physician, Prem Vazquez MD I reviewed the patient's care r n provided by the Advanced Practice Provider and agree with the diagnosis and treatment plan. Signatures: Dispatcher [employer] Sonia Young RN RN iw Nieto, Roman, MD MD rn Hall, Patricia, RN RN ph Rhodes, Dustin, FORENSIC SERGEANT-C FORENSIC SERGEANT-Cdr5
--- NOTE | 2025-03-10 20:00 | ER ---
Nurse's Notes [facility] Name: Vincent Martin Age: 35 yrs Sex: Male : 1990 Arrival Date: 03/10/2025 Time: 16:39 Bed 16 Private MD: Diagnosis: Gastro-esophageal reflux disease without esophagitis Presentation: 03/10 16:57 Chief complaint: Patient states: having left sided chest pain since 1 pm today , got iw worse at 3:20. Coronavirus screen: At this time, the client does not indicate any symptoms associated with coronavirus-19. Ebola Screen: No symptoms or risks identified at this time. Initial Sepsis Screen: Does the patient meet any 2 criteria? No. Patient's initial sepsis screen is negative. Does the patient have a suspected source of infection? No. Patient's initial sepsis screen is negative. Risk Assessment: Do you want to hurt yourself or someone else? Patient reports no desire to harm self or others. Onset of symptoms was March 10, 2025. 16:57 Method Of Arrival: Ambulatory iw 16:57 Acuity: MINERVA 3 iw Historical: - Allergies: 18:16 No Known Allergies; ph - PMHx: 16:58 acid reflux; iw - Immunization history:: Adult Immunizations unknown. - Infectious Disease History:: Denies. - Social history:: Smoking status: unknown. Screenin:15 [facility] ED Fall Risk Assessment (Adult) History of falling in the last 3 months, ph including since admission No falls in past 3 months (0 pts) Confusion or Disorientation No (0 pts) Intoxicated or Sedated No (0 pts) Impaired Gait No (0 pts) Mobility Assist Device Used No (0 pt) Altered Elimination No (0 pt) Score/Fall Risk Level 0 - 2 = Low Risk Oriented to surroundings, Maintained a safe environment, Hourly rounding (assess needs \T\ fall precautionary measures) done. Abuse screen: Denies threats or abuse. Denies injuries from another. Nutritional screening: No deficits noted. Tuberculosis screening: No symptoms or risk factors identified. Assessment: 18:14 General: Appears in no apparent distress. Behavior is calm, cooperative. Pain: ph Complains of pain in anterior aspect of left upper chest Pain does not radiate. Pain began gradually. Neuro: Level of Consciousness is awake, alert, obeys commands, Oriented to person, place, time, situation. Cardiovascular: Reports chest pain, Rhythm is sinus rhythm. Respiratory: Airway is patent Respiratory effort is even, unlabored, Respiratory pattern is regular, symmetrical. GI: No signs and/or symptoms were reported involving the gastrointestinal system. Derm: Skin is pink, warm \T\ dry. Vital Signs: 16:57 BP 150 / 96; Pulse 78; Resp 16; Temp 98.5; Pulse Ox 98% on R/A; iw 18:00 BP 138 / 89; Pulse 72; Resp 18; Pulse Ox 99% on R/A; ph 20:19 BP 122 / 82; Pulse 64; Resp 18; Pulse Ox 100% ; cp4 ED Course: 16:46 Patient arrived in ED. im 16:58 Triage completed. iw 17:02 Chip Amaya FNP-C is [facility]. [facility]5 17:02 Prem Vazquez MD is Attending Physician. dr5 17:27 Eladia Verde, ARACELIS is Primary Nurse. ph 17:34 Chest Pa And Lat (2 Views) XRAY In Process Unspecified. EDMS 18:07 Warm blanket given. am7 18:08 Inserted saline lock: 20 gauge in left antecubital area, using aseptic technique. Blood am7 collected. Flushed with 10 mL NS. 18:15 Patient has correct armband on for positive identification. Bed in low position. Call ph light in reach. Side rails up X 1. monitor tech on. Pulse ox on. NIBP on. 18:15 No provider procedures requiring assistance completed. Patient maintains SpO2 ph saturation greater than 95% on room air. 18:16 Arm band placed on Patient placed in an exam room. ph 20:23 Provided Education on: GERD. cp4 20:23 intact, bleeding controlled, No redness/swelling at site. Pressure dressing applied. cp4 Administered Medications: 18:59 Not Given (Patient Refused): [id number] mg PO once ph 18:59 Not Given (Patient Refused): [id number] mg PO once ph Medication: 18:15 VIS not applicable for this client. ph Outcome: 19:59 Discharge ordered by . dr5 20:23 Discharged to home ambulatory, cp4 20:23 Condition: stable 20:23 Discharge instructions given to patient, family, Instructed on discharge instructions, follow up and referral plans. Demonstrated understanding of instructions, follow-up care, 20:29 Patient left the ED. cp4 Signatures: Dispatcher [employer] Sonia Young RN RN Eladia Verde RN RN ph Mendoza, Itzel im Potter, Christina cp4 Chip Amaya, ALEXANDRA-C APPLICATION DEFENSE MANAGER-[facility]5 Kim Isbell am7
--- NOTE | 2025-03-12 12:11 | EKG ---
Test Date: 2025-03-10 Test Time: 17:04:42 [employer] Employee: [employer] MEASUREMENT RESULTS: Intervals: Rate: 59 PA: 124 QRSD: 90 QT: 368 QTc: 364 [place]: P: 44 PA: 124 QRS: 41 T: 41 INTERPRETIVE STATEMENTS: Sinus bradycardia Otherwise normal ECG No previous ECG available for comparison Electronically Signed On 03-12-25 12:08:24 CDT by Remberto Higuera
[2025-03-12 22:14] VITALS: TEMP 98.5
[2025-03-12 22:17] VITALS: BP 122/82; O2SAT 100
== END 2025-03-10 20:29 | disposition home or self-care (01) ==
LOC: ER 16:39
DX: K21.9 Gastro-esophageal reflux disease without esophagitis (principal)
CPT/HCPCS: 36415; 71046; 80048; 83690; 84484; 85025; 93005; 99284